=== PATIENT | female | born 1990 | race Caucasian/White ===

== ENCOUNTER 2022-01-26 11:12 | Emergency (ER) | payer BC, OTHER ==
[~2022-01-26] VITALS: Ht 154 cm; Wt 59.0 kg
--- NOTE | 2022-01-26 11:33 | ED Cardiac General ---
History of Present Illness General Stated Complaint: TACHY; SOB; DIAPHORESIS Source: patient, other (walk in clinic nurse) Exam Limitations: no limitations History of Present Illness Date Seen by Provider: Jan 26, 2022 Time Seen by Provider: 11:16 Initial Comments 31yoF with no pertinent PMH coming in after she was feeling her heart race. Her Apple watch alerted her that her heart rate was 210 and this was roughly 30 minutes prior to arrival to the ER. She had some pain with breathing associated with it that was mid sternal and also some tightness. She says her pain is now gone. Denies any symptoms like this before. Denies history of DVT/PE, recent long travel, recent surgeries, hormone use, hemoptysis, fever, abd pain, n/v/d, weakness, or any other concerns. Allergies and Home Medications Allergies Coded Allergies: No Known Drug Allergies (Unverified , 01/26/22) Patient Home Medication List Home Medication List Reviewed: Yes Review of Systems Review of Systems Constitutional: No fever EENTM: No Blurred Vision Respiratory: Denies Cough, Denies Shortness of Air Cardiovascular: Chest Pain, Palpitations Gastrointestinal: Denies Abdominal Pain Genitourinary: No Symptoms Reported Musculoskeletal: no symptoms reported Skin: no symptoms reported Psychiatric/Neurological: No Symptoms Reported Endocrine: No Symptoms Reported Hematologic/Lymphatic: No Symptoms Reported All Other Systems Reviewed Negative Unless Noted: Yes Past Cteuxjm-Vyoety-Oukvpp Hx Patient Social History Substance use?: No Past Medical History Surgeries: No Physical Exam Vital Signs Vital Signs - First Documented 01/26/22 11:53 Temp 35.7 Pulse 119 Resp 18 B/P (MAP) 152/91 (111) Pulse Ox 98 O2 Delivery Room Air Capillary Refill : Height, Weight, BMI Height: '" Weight: lbs. oz. kg; BMI Method: General Appearance: No Apparent Distress, WD/WN HEENT: PERRL/EOMI, Normal ENT Inspection, Pharynx Normal Neck: Full Range of Motion, Normal Inspection, Non Tender, Supple Respiratory: Chest Non Tender, Lungs Clear, Normal Breath Sounds, No Accessory Muscle Use, No Respiratory Distress Cardiovascular: No Edema, Normal Peripheral Pulses, Tachycardia Gastrointestinal: Normal Bowel Sounds, Non Tender, Soft; No Guarding Extremity: Normal Capillary Refill, Normal Inspection, Normal Range of Motion, Non Tender, No Calf Tenderness, No Pedal Edema Neurologic/Psychiatric: Alert, No Motor/Sensory Deficits, Normal Mood/Affect Skin: Normal Color, Warm/Dry Lymphatic: No Adenopathy Progress/Results/Core Measures Results/Orders Lab Results Laboratory Tests Test 01/26/22 11:29 Range/Units White Blood Count 11.0 4.3-11.0 10^3/uL Red Blood Count 4.86 3.80-5.11 10^6/uL Hemoglobin 14.2 11.5-16.0 g/dL Hematocrit 42 35-52 % Mean Corpuscular Volume 87 80-99 fL Mean Corpuscular Hemoglobin 29 25-34 pg Mean Corpuscular Hemoglobin Concent 34 32-36 g/dL Red Cell Distribution Width 12.3 10.0-14.5 % Platelet Count 270 130-400 10^3/uL Mean Platelet Volume 9.7 9.0-12.2 fL Immature Granulocyte % (Auto) 1 % Neutrophils (%) (Auto) 65 42-75 % Lymphocytes (%) (Auto) 29 12-44 % Monocytes (%) (Auto) 4 0-12 % Eosinophils (%) (Auto) 1 0-10 % Basophils (%) (Auto) 0 0-10 % Neutrophils # (Auto) 7.1 1.8-7.8 10^3/uL Lymphocytes # (Auto) 3.2 1.0-4.0 10^3/uL Monocytes # (Auto) 0.5 0.0-1.0 10^3/uL Eosinophils # (Auto) 0.1 0.0-0.3 10^3/uL Basophils # (Auto) 0.0 0.0-0.1 10^3/uL Immature Granulocyte # (Auto) 0.1 0.0-0.1 10^3/uL Prothrombin Time 12.2 12.2-14.7 SEC INR Comment 0.9 0.8-1.4 Activated Partial Thromboplast Time 29 24-35 SEC D-Dimer 0.27 0.00-0.49 UG/ML Sodium Level 137 135-145 MMOL/L Potassium Level 3.9 3.6-5.0 MMOL/L Chloride Level 98 98-107 MMOL/L Carbon Dioxide Level 21 21-32 MMOL/L Anion Gap 18 H 5-14 MMOL/L Blood Urea Nitrogen 11 7-18 MG/DL Creatinine 0.80 0.60-1.30 MG/DL Estimat Glomerular Filtration Rate 101 BUN/Creatinine Ratio 14 Glucose Level 195 H 70-105 MG/DL Calcium Level 9.2 8.5-10.1 MG/DL Corrected Calcium 8.5-10.1 MG/DL Magnesium Level 1.7 1.6-2.4 MG/DL Total Bilirubin 0.5 0.1-1.0 MG/DL Aspartate Amino Transf (AST/SGOT) 14 5-34 U/L Alanine Aminotransferase (ALT/SGPT) 15 0-55 U/L Alkaline Phosphatase 86 40-136 U/L Troponin I < 0.30 <0.30 NG/ML Pro-B-Type Natriuretic Peptide 29.1 <125.0 PG/ML Total Protein 8.2 6.4-8.2 GM/DL Albumin 5.1 H 3.2-4.5 GM/DL Lipase 21 8-78 U/L Serum Test, Qualitative NEGATIVE NEGATIVE My Orders Orders - JEANNINE NEGRO MD Cbc With Automated Diff (01/26/22 11:17) Magnesium (01/26/22 11:17) Chest 1 View Ap/Pa Only (01/26/22 11:17) Ekg Tracing (01/26/22 11:17) Comprehensive Metabolic Panel (01/26/22 11:17) Protime With Inr (01/26/22 11:17) Partial Thromboplastin Time (01/26/22 11:17) O2 (01/26/22 11:17) Monitor-Rhythm Ecg Trace Only (01/26/22 11:17) Ed Iv/Invasive Line Start (01/26/22 11:17) Lipase (01/26/22 11:17) Troponin I Fs (01/26/22 11:17) Probnp Fs (01/26/22 11:17) Fibrin Degradation Products (01/26/22 11:29) Lactated Ringers (Lr 1000 Ml Iv Solution (01/26/22 11:41) Hcg,Qualitative Serum (01/26/22 11:43) Vital Signs/I&O 01/26/22 11:53 Temp 35.7 Pulse 119 Resp 18 B/P (MAP) 152/91 (111) Pulse Ox 98 O2 Delivery Room Air Progress Progress Note : Progress Note 31-year-old female with above history coming in due to palpitations and chest d iscomfort. ABCs were intact and vitals were stable on presentation although she is mildly tachycardic here. An IV was placed and basic labs were obtained including cardiac biomarkers. Troponin negative, BNP normal, D-dimer normal. Chest x-ray my interpretation with no acute findings including normal cardiac silhouette, no opacities, no pneumothorax. I did a [id number] ultrasound showing normal ejection fraction, no pericardial effusion, and no obvious signs of right heart strain. EKG with no acute ischemic changes although she does show sinus tachycardia. I was able to pull up the heart rate data from her apple watch and she does sit around the low 100s very often and has for over a year which is as far back as the data goes. This is likely a chronic issue with her. I will have her follow-up with her PCP and likely have a Holter monitor. In regards to the episode in which her heart rate was 210, I suspect she went into SVT and came out of it by herself. I believe she is stable for discharge with outpatient follow-up. She was sent home with strict return precautions Initial ECG Impression Date: Jan 26, 2022 Initial ECG Impression Time: 11:21 Initial ECG Rate: 121 Initial ECG Rhythm: S.Tach Comment Narrow QRS, normal axis, no significant ST changes, TWI in lead III Departure Impression Primary Impression: Palpitations Disposition: 01 HOME, SELF-CARE Condition: Stable Departure-Patient Inst. Decision time for Depature: 12:25 Referrals: TERESITA LAKE MD (PCP) Primary Care Physician Patient Instructions: Palpitations ED, Supraventricular Tachycardia (SVT) Add. Discharge Instructions: I suspect he went into SVT earlier, there should be some information listed in this paperwork regarding it. If this happens again you can try to bear down and increase the pressure in your stomach and chest to try to lower the heart rate again. If it persist for more than 10 minutes or so, or you have severe chest pain or severe shortness of breath and you need to call 911 or have [address] drive you to the ER. I would recommend following up with your doctor in regards to your elevated heart rate to see if they would like to place a Holter monitor or have you referred to a bioinformaticist. Work/School Note: Work Release Form Date Seen in the Emergency Department: Jan 26, 2022 Return to Work: Jan 27, 2022 Restrictions: No Restrictions JEANNINE NEGRO MD Jan 26, 2022 11:33
[2022-01-26] MEDS ORDERED: LACTATED RINGERS 1,000 ML IV STA (11:41)
[2022-01-26 11:47] LABS: BASOPHILS % (AUTO) 0 % (0-10); EOSINOPHILS # (AUTO) 0.1 10^3/uL (0.0-0.3); EOSINOPHILS % (AUTO) 1 % (0-10); HEMATOCRIT 42 % (35-52); HEMOGLOBIN 14.2 g/dL (11.5-16.0); LYMPHOCYTES # (AUTO) 3.2 10^3/uL (1.0-4.0); LYMPHOCYTES % (AUTO) 29 % (12-44); MEAN CORPUSCULAR HEMOGLOBIN 29 pg (25-34); MEAN CORPUSCULAR HGB CONC 34 g/dL (32-36); MEAN CORPUSCULAR VOLUME 87 fL (80-99); MEAN PLATELET VOLUME 9.7 fL (9.0-12.2); MONOCYTES # (AUTO) 0.5 10^3/uL (0.0-1.0); MONOCYTES % (AUTO) 4 % (0-12); NEUTROPHILS # (AUTO) 7.1 10^3/uL (1.8-7.8); NEUTROPHILS % (AUTO) 65 % (42-75); PLATELET COUNT 270 10^3/uL (130-400)
[2022-01-26 12:05] LABS: INR 0.9 (0.8-1.4); PROTHROMBIN TIME PATIENT 12.2 SEC (12.2-14.7)
[2022-01-26 12:09] LABS: BUN/CREATININE RATIO 14; CARBON DIOXIDE 21 MMOL/L (21-32); CHLORIDE 98 MMOL/L (98-107); GFR ESTIMATED 101; GLUCOSE 195 MG/DL (70-105); POTASSIUM 3.9 MMOL/L (3.6-5.0); SODIUM 137 MMOL/L (135-145)
[2022-01-26 12:10] LABS: ALANINE AMINOTRANSFERASE 15 U/L (0-55); ALBUMIN 5.1 GM/DL (3.2-4.5); ALKALINE PHOSPHATASE 86 U/L (40-136); BILIRUBIN,TOTAL 0.5 MG/DL (0.1-1.0); CALCIUM 9.2 MG/DL (8.5-10.1); LIPASE 21 U/L (8-78); MAGNESIUM 1.7 MG/DL (1.6-2.4); TOTAL PROTEIN 8.2 GM/DL (6.4-8.2)
[2022-01-26 12:37] VITALS: BP 121/91
--- NOTE | 2022-01-30 11:30 | Diagnostic Imaging Report ---
INDICATION: Chest pain. FINDINGS: The heart size, mediastinal configuration, and pulmonary vascularity are within normal limits. There is no pleural effusion, pneumothorax, or pneumonia. The osseous structures are unremarkable. IMPRESSION: No acute cardiopulmonary abnormality. Dictated by: Dictated on workstation # [id number]
== END 2022-01-26 12:35 | disposition home or self-care (01) ==
LOC: EDUNIT# 11:12 → ER FS 11:14
DX: R00.2 Palpitations (principal); R00.0 Tachycardia, unspecified
CPT/HCPCS: 36415; 71045; 80053; 83690; 83735; 83880; 84484; 84703; 85025; 85379; 85610; 85730; 93005; 93041

== ENCOUNTER → 2022-02-08 | Outpatient (CLI) | payer BC | LOC: CARD 09:06 | PROVIDERS: ATTEND Family Medicine | DX: I47.1 Supraventricular tachycardia (principal) | CPT/HCPCS: 93306 ==